=== PATIENT | female | born 1985 ===

== ENCOUNTER 2021-07-15 14:42 | Outpatient (REF) | payer SELFPAY ==
--- NOTE | 2021-07-15 10:15 | PAPFT_PTH ---
PATIENT: Beatriz Falcon LOC: [facility] U#:[id number] AGE/SX: 35/F ROOM: RE07/15/[address]: Anne Marie Hebert : 1985 BED: DIS: 07/15/2021 SPEC #: [id number] RECD: 07/15/21 18:14 STATUS: CESARIO REQ #: [id number] KEKE: 07/15/21 10:[address]: Anne Marie Luna DEPT: [facility] Cytology RECD BY: Keshia Cazares ENTERED: 07/15/21 18:15 SP TYPE: PAPFT OTHR DR: Unknown,Unknown Tissues: 1 - CX/ENDOCX FOR PAP SMEARS Procedures: PAP THIN PREP/[facility] Screening HPV DNA PROBE Comments: [id number] (CHLAMYDIA/GC) (HPV 16 & 18/45)
[2021-07-16 16:32] LABS: Chlamydia Result Negative (Negative); GC Result Negative (Negative)
== END 2021-07-15 14:43 | disposition home or self-care (01) ==
LOC: LBN 14:42
PROVIDERS: Visit Provider Nurse Practitioner Family
DX: Z00.00 Encounter for general adult medical examination without abnormal findings (principal); Z12.4 Encounter for screening for malignant neoplasm of cervix; Z11.3 Encounter for screening for infections with a predominantly sexual mode of transmission; Z11.51 Encounter for screening for human papillomavirus (HPV); B97.7 Papillomavirus as the cause of diseases classified elsewhere
CPT/HCPCS: 87491; 87591; 88142; 87624